=== PATIENT | male | born 1980 | race African-American/Black ===

== ENCOUNTER 2023-01-08 17:21 | Emergency (ER) | payer MEDICAID ==
[~2023-01-08] VITALS: Ht 175.3 cm; Wt 91.0 kg
[2023-01-08 17:26] VITALS: BP 162/88
[2023-01-08] MEDS ORDERED: ASPIRIN 325MG TABLET PO ONE (18:15)
[2023-01-08 19:17] LABS: BASOPHILS % 0.7 % (0.0-2.0); EOSINOPHILS % 5.4 % (0.0-5.0); HEMATOCRIT. 43.2 % (42.0-52.0); HEMOGLOBIN. 14.8 g/dL (14.0-18.0); LYMPHOCYTES % 22.9 % (20.0-50.0); MEAN CORPUSCULAR HEMOGLOBIN 29.6 pg (28.0-32.0); MEAN CORPUSCULAR VOLUME 86.3 fL (80.0-94.0); MEAN PLATELET VOLUME 7.9 fl (7.4-10.4); MONOCYTES % 9.7 % (2.0-8.0); NEUTROPHILS % 61.3 % (40.0-76.0); PLATELET 328 x1000/uL (130-400); RED BLOOD CELL COUNT 5.01 mill/uL (4.7-6.1); RED CELL DISTRIBUTION WIDTH 15.4 % (11.6-14.6)
[2023-01-08 19:23] LABS: CHLORIDE 104 mEq/L (98-107)
== END 2023-01-08 19:59 | disposition left against medical advice (07) ==
LOC: ER 17:21
DX: R55 Syncope and collapse (principal); R07.89 Other chest pain; Z98.890 Other specified postprocedural states
CPT/HCPCS: 36415; 71045; 80053; 84484; 85025; 93005; 99285